=== PATIENT | female | born 1950 | race Caucasian/White ===

== ENCOUNTER 2016-05-20 19:08 | Inpatient (IN) | payer MEDICARE, MEDICAID ==
[~2016-05-20] VITALS: Ht 160 cm; Wt 73.5 kg
[~2016-05-20 19:08] MED LIST: ACLI400A2 IH; BENZ1TAB10 PO; DIVA500T35 PO; HALO50VI4 IM; LITH300T4 PO; METO25TA6 PO; RISP2 PO; TRAZ-144 PO
[2016-05-20] MEDS ORDERED: QUET300T2 PO (19:36)
[2016-05-20] MEDS ORDERED: QUET25TA PO (19:36)
[2016-05-20] MEDS ORDERED: DiphenhydrAMINE HCL 50 MG/ML VIAL IM ONE (20:00)
[2016-05-20] MEDS ORDERED: LORazepam 2 MG/ML VIAL IM ONE (20:00)
[2016-05-20] MEDS ORDERED: HALOPERIDOL LACTATE 5 MG/ML VIAL IM ONE (20:00)
[2016-05-20 20:14] LABS: BASOPHILS % (AUTO) 1.2 % (0.0-2.0); EOSINOPHILS % (AUTO) 1.6 % (1.0-6.0); HEMATOCRIT 40.5 % (36-46); LYMPHOCYTES % (AUTO) 41.8 % (22.0-44.0); MEAN CORPUSCULAR HEMOGLOBIN 31.4 pg (26.0-34.0); MEAN CORPUSCULAR HGB CONC 32.1 G/dL (31.0-37.0); MEAN CORPUSCULAR VOLUME 98 fL (80-100); MONOCYTES # (AUTO) 0.7 K/uL (0.1-1.0); MONOCYTES % (AUTO) 10.3 % (2.0-9.0); NEUTROPHILS # (AUTO) 3.2 K/uL (1.8-7.7); NEUTROPHILS % (AUTO) 45.1 % (40.0-70.0); PLATELET COUNT (AUTO) 255 K/uL (150-450); RED BLOOD CELL COUNT(AUTO) 4.14 MIL/uL (4.00-5.20); RED CELL DISTRIBUTION WIDTH 14.6 % (11.5-14.5); WHITE BLOOD COUNT (AUTO) 7.1 K/uL (4.5-11.0)
[2016-05-20 20:17] LABS: GLUCOSE,POINT OF CARE 126 MG/DL (70-110)
[2016-05-20 20:29] LABS: ANION GAP 8 mmol/L (8-16); CALCIUM, TOTAL 8.8 mg/dL (8.8-10.5); CARBON DIOXIDE 30 mmol/L (22-29); CHLORIDE 103 mmol/L (98-107); CREATININE 0.88 mg/dL (0.60-1.30); GLOMERULAR FILTR. RATE CALC > 60 mL/min (>60); POTASSIUM 4.2 mmol/L (3.5-5.1); SODIUM SERUM 141 mmol/L (136-145); UREA NITROGEN, BLOOD 22 mg/dL (7-18)
[2016-05-20 20:35] LABS: ALANINE AMINOTRANSFERASE 13 U/L (12-78); ALBUMIN 3.1 g/dL (3.4-5.0); ASPARTATE AMINOTRANSFERASE 9 U/L (15-37); BILIRUBIN,TOTAL 0.3 mg/dL (0.1-1.0); TOTAL PROTEIN, SERUM 7.6 g/dL (6.4-8.2); VALPROIC ACID 61 mcg/mL (50-100)
[2016-05-20 20:42] LABS: LITHIUM < 0.20 mmol/L (0.60-1.20)
[2016-05-20] MEDS ORDERED: ZOLPIDEM TARTRATE 10 MG TABLET PO PRN (20:45)
[2016-05-21] MEDS ORDERED: IPRATROPIUM BROMIDE 0.5 MG/2.5 ML NEB SOLUTION NEB ONE ×2 (00:30→02:15)
[2016-05-21] MEDS ORDERED: ALBUTEROL SULFATE 2.5 MG/0.5 ML NEB SOLUTION NEB ONE (00:30)
[2016-05-21] MEDS ORDERED: ALBUTEROL SULFATE 5 MG/ML 20 ML NEB SOLN [BULK] NEB ONE (02:15)
[2016-05-21] MEDS ORDERED: PredniSONE 20 MG TABLET PO ONE (02:15)
[2016-05-21 03:43] LABS: B-TYPE NATRIURETIC PEPTIDE 67 pg/mL (0-100)
[2016-05-21] MEDS: HALOPERIDOL 5 MG TABLET PO PRN ×2 (07:32→16:20)
[2016-05-21] MEDS: LORazepam 2 MG TABLET PO PRN ×2 (07:32→16:20)
[2016-05-21 10:01] VITALS: BP 123/67
[2016-05-21] MEDS ORDERED: NICOTINE 14 MG/24 HOUR PATCH TD SCH (11:15)
[2016-05-21] MEDS ORDERED: PNEUMOCOCCAL VACCINE POLYVALENT 0.5 ML VIAL [PPSV23] IM ONE (11:15)
[2016-05-21] MEDS: QUEtiapine FUMARATE 25 MG TABLET PO SCH (16:20)
[2016-05-21 17:51] VITALS: BP 150/72
[2016-05-21] MEDS ORDERED: DIVALPROEX SODIUM 500 MG ER TABLET PO SCH (21:00)
[2016-05-21] MEDS: QUEtiapine FUMARATE 300 MG TABLET PO SCH (21:53)
[2016-05-21] MEDS: DIVALPROEX SODIUM 500 MG DR TABLET PO SCH (21:55)
[2016-05-21 21:57] LABS: GLUCOSE,POINT OF CARE 123 MG/DL (70-110)
[2016-05-21] MEDS ORDERED: ALBUTEROL SULFATE HFA 90 MCG/PUFF 8 GM INHALER IH PRN (23:15)
[2016-05-21] MEDS ORDERED: ACETAMINOPHEN 325 MG TABLET PO PRN (23:15)
[2016-05-22] MEDS: QUEtiapine FUMARATE 25 MG TABLET PO SCH ×2 (08:19→16:46)
[2016-05-22] MEDS: DIVALPROEX SODIUM 500 MG DR TABLET PO SCH ×2 (08:19→20:23)
[2016-05-22] MEDS: LORazepam 2 MG TABLET PO PRN ×2 (08:21→15:04)
[2016-05-22] MEDS: HALOPERIDOL 5 MG TABLET PO PRN ×2 (08:21→15:04)
[2016-05-22] MEDS: NICOTINE 21 MG/24 HOUR PATCH TD SCH (09:00)
[2016-05-22 11:46] LABS: GLUCOSE,POINT OF CARE 99 MG/DL (70-110)
[2016-05-22 16:57] LABS: GLUCOSE,POINT OF CARE 92 MG/DL (70-110)
[2016-05-22] MEDS: QUEtiapine FUMARATE 300 MG TABLET PO SCH (20:23)
[2016-05-23 05:37] LABS: GLUCOSE,POINT OF CARE 87 MG/DL (70-110)
[2016-05-23] MEDS: QUEtiapine FUMARATE 25 MG TABLET PO SCH ×2 (09:05→17:29)
[2016-05-23] MEDS: NICOTINE 21 MG/24 HOUR PATCH TD SCH (09:05)
[2016-05-23] MEDS: DIVALPROEX SODIUM 500 MG DR TABLET PO SCH ×2 (09:05→19:53)
[2016-05-23] MEDS: HALOPERIDOL 5 MG TABLET PO PRN ×2 (09:07→17:25)
[2016-05-23] MEDS: LORazepam 2 MG TABLET PO PRN (09:07)
[2016-05-23 17:37] LABS: GLUCOSE COMMENT 1 Received Meds; GLUCOSE,POINT OF CARE 98 MG/DL (70-110)
[2016-05-23] MEDS: QUEtiapine FUMARATE 300 MG TABLET PO SCH (19:53)
[2016-05-23 22:12] VITALS: BP 108/75
[2016-05-24 05:32] LABS: GLUCOSE,POINT OF CARE 93 MG/DL (70-110)
[2016-05-24] MEDS: DIVALPROEX SODIUM 500 MG DR TABLET PO SCH ×2 (08:45→20:22)
[2016-05-24] MEDS: QUEtiapine FUMARATE 25 MG TABLET PO SCH ×2 (08:45→16:13)
[2016-05-24] MEDS: NICOTINE 21 MG/24 HOUR PATCH TD SCH (08:50)
[2016-05-24] MEDS ORDERED: HALOPERIDOL LACTATE 5 MG/ML VIAL IM PRN (14:30)
[2016-05-24 16:56] VITALS: BP 117/64
[2016-05-24] MEDS: QUEtiapine FUMARATE 300 MG TABLET PO SCH (20:22)
[2016-05-24] MEDS: HALOPERIDOL LACTATE 5 MG/ML VIAL IM PRN (20:23)
[2016-05-24 23:45] VITALS: BP 110/68
[2016-05-24] MEDS: IBUPROFEN 400 MG TABLET PO PRN (23:46)
[2016-05-25 05:42] LABS: GLUCOSE,POINT OF CARE 158 MG/DL (70-110)
[2016-05-25 07:07] LABS: CHOL/HDL RATIO 9.3 (3.9-5.7); THYROID STIMULATING HORMONE 1.68 uIU/mL (0.36-3.74)
[2016-05-25] MEDS: LORazepam 2 MG TABLET PO PRN ×2 (07:11→13:56)
[2016-05-25 07:35] LABS: HEMOGLOBIN A1C 6.4 % (4.5-6.2)
[2016-05-25 08:55] VITALS: BP 114/59
[2016-05-25] MEDS: QUEtiapine FUMARATE 25 MG TABLET PO SCH ×3 (10:01→19:10)
[2016-05-25] MEDS: DIVALPROEX SODIUM 500 MG DR TABLET PO SCH ×2 (10:01→21:00)
[2016-05-25] MEDS: NICOTINE 21 MG/24 HOUR PATCH TD SCH (10:03)
[2016-05-25] MEDS: QUEtiapine FUMARATE 300 MG TABLET PO SCH (21:00)
[2016-05-25] MEDS: HALOPERIDOL LACTATE 5 MG/ML VIAL IM PRN (21:21)
[2016-05-25 21:27] LABS: GLUCOSE,POINT OF CARE 114 MG/DL (70-110)
[2016-05-25 21:32] VITALS: BP 112/68
[2016-05-25 23:30] VITALS: BP 120/70
[2016-05-25] MEDS: IBUPROFEN 400 MG TABLET PO PRN (23:37)
[2016-05-26 05:37] LABS: GLUCOSE,POINT OF CARE 90 MG/DL (70-110)
[2016-05-26] MEDS: LORazepam 2 MG TABLET PO PRN ×3 (06:52→15:53)
[2016-05-26 08:00] VITALS: BP 100/52
[2016-05-26] MEDS: QUEtiapine FUMARATE 25 MG TABLET PO SCH ×2 (08:34→15:55)
[2016-05-26] MEDS: DIVALPROEX SODIUM 500 MG DR TABLET PO SCH ×2 (08:34→20:43)
[2016-05-26] MEDS: NICOTINE 21 MG/24 HOUR PATCH TD SCH (09:05)
[2016-05-26 09:50] VITALS: BP 110/62
[2016-05-26] MEDS: HALOPERIDOL 5 MG TABLET PO PRN ×2 (11:12→15:54)
[2016-05-26 16:02] LABS: GLUCOSE COMMENT 1 Received Meds; GLUCOSE,POINT OF CARE 144 MG/DL (70-110)
[2016-05-26 16:34] VITALS: BP 118/68
[2016-05-26] MEDS: QUEtiapine FUMARATE 300 MG TABLET PO SCH (20:43)
[2016-05-26] MEDS: SIMVASTATIN 10 MG TABLET PO SCH (20:44)
[2016-05-27 05:37] LABS: GLUCOSE,POINT OF CARE 110 MG/DL (70-110)
[2016-05-27 05:54] VITALS: BP 115/64
[2016-05-27] MEDS: LORazepam 2 MG TABLET PO PRN ×2 (06:02→16:13)
[2016-05-27 08:00] VITALS: BP 103/67
[2016-05-27] MEDS: DIVALPROEX SODIUM 500 MG DR TABLET PO SCH ×2 (08:39→21:35)
[2016-05-27] MEDS: QUEtiapine FUMARATE 25 MG TABLET PO SCH ×2 (08:39→16:13)
[2016-05-27] MEDS: NICOTINE 21 MG/24 HOUR PATCH TD SCH (08:40)
[2016-05-27 16:42] LABS: GLUCOSE,POINT OF CARE 101 MG/DL (70-110)
[2016-05-27 17:12] VITALS: BP 112/68
[2016-05-27] MEDS: SIMVASTATIN 10 MG TABLET PO SCH (21:35)
[2016-05-27] MEDS: QUEtiapine FUMARATE 300 MG TABLET PO SCH (21:35)
[2016-05-28 05:37] LABS: GLUCOSE,POINT OF CARE 78 MG/DL (70-110)
[2016-05-28] MEDS: QUEtiapine FUMARATE 25 MG TABLET PO SCH (08:17)
[2016-05-28] MEDS: LORazepam 2 MG TABLET PO PRN (08:17)
[2016-05-28] MEDS: DIVALPROEX SODIUM 500 MG DR TABLET PO SCH (08:17)
[2016-05-28] MEDS: NICOTINE 21 MG/24 HOUR PATCH TD SCH (08:23)
[2016-05-28] MEDS ORDERED: SIMV10 PO (11:38)
[2016-05-28] MEDS: HALOPERIDOL 5 MG TABLET PO PRN (11:41)
== END 2016-05-28 13:50 | disposition home or self-care (01) | DRG 750 ==
LOC: EMS 19:13 → UNDOADMIN 21:00 → B3A 21:00 → 3EI 05-21 02:00 → EMS 05-21 09:19
DX: F25.0 Schizoaffective disorder, bipolar type (principal); E55.9 Vitamin D deficiency, unspecified; J44.9 Chronic obstructive pulmonary disease, unspecified; E11.9 Type 2 diabetes mellitus without complications; F17.210 Nicotine dependence, cigarettes, uncomplicated; I10 Essential (primary) hypertension; E78.5 Hyperlipidemia, unspecified; E03.9 Hypothyroidism, unspecified; Z71.6 Tobacco abuse counseling; Z59.0 Homelessness; Z91.5 Personal history of self-harm; Z79.899 Other long term (current) drug therapy; Z28.21 Immunization not carried out because of patient refusal
CPT/HCPCS: 82652; 82962; 83036; 84443; 94640; 94644; 96372; 99285; 99406; G0480; J1200; J1630; J2060

== ENCOUNTER 2016-06-01 18:04 | Inpatient (IN) | payer MEDICARE, MEDICAID ==
[~2016-06-01] VITALS: Ht 165.1 cm; Wt 72.4 kg
[~2016-06-01 18:04] MED LIST changes: -ACLI400A2 IH; -BENZ1TAB10 PO; -HALO50VI4 IM; -LITH300T4 PO; -METO25TA6 PO; +QUET25TA PO; +QUET300T2 PO; -RISP2 PO; +SIMV-259 PO; -TRAZ-144 PO
[2016-06-01] MEDS ORDERED: DiphenhydrAMINE HCL 50 MG/ML VIAL IM ONE ×2 (18:15→20:45)
[2016-06-01] MEDS ORDERED: HALOPERIDOL LACTATE 5 MG/ML VIAL IM ONE (18:15)
[2016-06-01] MEDS ORDERED: LORazepam 2 MG/ML VIAL IM ONE ×3 (18:15→20:45)
[2016-06-01 20:36] LABS: BASOPHILS % (AUTO) 0.5 % (0.0-2.0); EOSINOPHILS % (AUTO) 0.4 % (1.0-6.0); HEMOGLOBIN 14.6 g/dL (12.0-16.0); LYMPHOCYTES # (AUTO) 2.8 K/uL (1.0-4.8); LYMPHOCYTES % (AUTO) 26.4 % (22.0-44.0); MEAN CORPUSCULAR HEMOGLOBIN 31.2 pg (26.0-34.0); MEAN CORPUSCULAR HGB CONC 32.4 G/dL (31.0-37.0); MEAN CORPUSCULAR VOLUME 96 fL (80-100); MONOCYTES # (AUTO) 0.7 K/uL (0.1-1.0); MONOCYTES % (AUTO) 6.7 % (2.0-9.0); PLATELET COUNT (AUTO) 222 K/uL (150-450); RED BLOOD CELL COUNT(AUTO) 4.67 MIL/uL (4.00-5.20); RED CELL DISTRIBUTION WIDTH 14.5 % (11.5-14.5); WHITE BLOOD COUNT (AUTO) 10.6 K/uL (4.5-11.0)
[2016-06-01 20:39] LABS: ANION GAP 5 mmol/L (8-16); CARBON DIOXIDE 32 mmol/L (22-29); CHLORIDE 101 mmol/L (98-107); CREATININE 0.73 mg/dL (0.60-1.30); GLOMERULAR FILTR. RATE CALC > 60 mL/min (>60); POTASSIUM 4.7 mmol/L (3.5-5.1); SODIUM SERUM 138 mmol/L (136-145); UREA NITROGEN, BLOOD 13 mg/dL (7-18)
[2016-06-01 20:45] LABS: ALANINE AMINOTRANSFERASE 22 U/L (12-78); ALBUMIN 3.3 g/dL (3.4-5.0); ASPARTATE AMINOTRANSFERASE 31 U/L (15-37); BILIRUBIN,TOTAL 0.4 mg/dL (0.1-1.0); TOTAL PROTEIN, SERUM 7.9 g/dL (6.4-8.2); VALPROIC ACID 50 mcg/mL (50-100)
[2016-06-01 21:10] LABS: APPEARANCE,URINE CLEAR (CLEAR); GLUCOSE, URINE (UA) NEGATIVE (NEGATIVE); KETONES,URINE NEGATIVE (NEGATIVE); LEUKOCYTE ESTERASE ,URINE SMALL (NEGATIVE); OCCULT BLOOD,URINE NEGATIVE (NEGATIVE); PROTEIN,URINE NEGATIVE (NEGATIVE)
[2016-06-01 21:11] LABS: ADD UA MICROSCOPIC YES
[2016-06-01 22:02] LABS: SQUAMOUS EPITHELIAL CELL,UR Few /LPF (None Seen)
[2016-06-01 22:07] LABS: RBC,URINE 0-2 /HPF (0-2)
[2016-06-01] MEDS ORDERED: ZOLPIDEM TARTRATE 10 MG TABLET PO PRN (23:00)
[2016-06-01 23:16] VITALS: BP 145/86
[2016-06-02] MEDS ORDERED: PNEUMOCOCCAL VACCINE POLYVALENT 0.5 ML VIAL [PPSV23] IM ONE (01:45)
[2016-06-02 01:47] VITALS: BP 140/82
[2016-06-02] MEDS: LORazepam 2 MG TABLET PO PRN (07:51)
[2016-06-02] MEDS: DIVALPROEX SODIUM 500 MG DR TABLET PO SCH ×2 (08:00→20:34)
[2016-06-02] MEDS: QUEtiapine FUMARATE 200 MG TABLET PO SCH ×2 (08:00→17:01)
[2016-06-02] MEDS ORDERED: IBUPROFEN 400 MG TABLET PO PRN (09:45)
[2016-06-02] MEDS ORDERED: ALBUTEROL SULFATE HFA 90 MCG/PUFF 8 GM INHALER IH PRN (09:45)
[2016-06-02] MEDS ORDERED: ACETAMINOPHEN 325 MG TABLET PO PRN (09:45)
[2016-06-02] MEDS: NICOTINE 21 MG/24 HOUR PATCH TD SCH (11:18)
[2016-06-02] MEDS: SIMVASTATIN 10 MG TABLET PO SCH (20:34)
[2016-06-02] MEDS: QUEtiapine FUMARATE 300 MG TABLET PO SCH (21:21)
[2016-06-03 06:08] LABS: GLUCOSE,POINT OF CARE 104 MG/DL (70-110)
[2016-06-03] MEDS: LORazepam 2 MG TABLET PO PRN ×2 (08:47→16:46)
[2016-06-03] MEDS: QUEtiapine FUMARATE 25 MG TABLET PO SCH ×2 (08:47→16:46)
[2016-06-03] MEDS: DIVALPROEX SODIUM 500 MG DR TABLET PO SCH ×2 (08:47→20:55)
[2016-06-03] MEDS: NICOTINE 21 MG/24 HOUR PATCH TD SCH (09:00)
[2016-06-03 19:15] VITALS: BP 121/60
[2016-06-03] MEDS: SIMVASTATIN 10 MG TABLET PO SCH (20:55)
[2016-06-03] MEDS: QUEtiapine FUMARATE 300 MG TABLET PO SCH (20:55)
[2016-06-04 06:13] LABS: GLUCOSE,POINT OF CARE 120 MG/DL (70-110)
[2016-06-04 08:00] VITALS: BP 123/70
[2016-06-04] MEDS: NICOTINE 21 MG/24 HOUR PATCH TD SCH (09:00)
[2016-06-04] MEDS: DIVALPROEX SODIUM 500 MG DR TABLET PO SCH ×2 (09:00→21:48)
[2016-06-04] MEDS: QUEtiapine FUMARATE 25 MG TABLET PO SCH ×2 (09:00→17:30)
[2016-06-04] MEDS: LORazepam 2 MG TABLET PO PRN (15:44)
[2016-06-04] MEDS: HALOPERIDOL 5 MG TABLET PO PRN (15:45)
[2016-06-04 16:47] LABS: GLUCOSE,POINT OF CARE 108 MG/DL (70-110)
[2016-06-04] MEDS ORDERED: HALOPERIDOL LACTATE 5 MG/ML VIAL IM PRN (18:30)
[2016-06-04] MEDS: SIMVASTATIN 10 MG TABLET PO SCH (21:48)
[2016-06-04] MEDS: QUEtiapine FUMARATE 300 MG TABLET PO SCH (21:48)
[2016-06-05] MEDS: HALOPERIDOL 5 MG TABLET PO PRN ×2 (00:42→10:54)
[2016-06-05 01:12] VITALS: BP 114/70
[2016-06-05] MEDS: LORazepam 2 MG TABLET PO PRN ×3 (05:04→17:07)
[2016-06-05] MEDS: QUEtiapine FUMARATE 25 MG TABLET PO SCH ×2 (09:04→17:06)
[2016-06-05] MEDS: NICOTINE 21 MG/24 HOUR PATCH TD SCH (09:04)
[2016-06-05] MEDS: DIVALPROEX SODIUM 500 MG DR TABLET PO SCH ×2 (09:04→20:29)
[2016-06-05 19:10] VITALS: BP 118/66
[2016-06-05] MEDS: QUEtiapine FUMARATE 300 MG TABLET PO SCH (20:29)
[2016-06-05] MEDS: SIMVASTATIN 10 MG TABLET PO SCH (20:29)
[2016-06-06 08:00] VITALS: BP 140/80
[2016-06-06] MEDS: LORazepam 2 MG TABLET PO PRN (08:16)
[2016-06-06] MEDS: QUEtiapine FUMARATE 25 MG TABLET PO SCH ×2 (08:17→16:45)
[2016-06-06] MEDS: DIVALPROEX SODIUM 500 MG DR TABLET PO SCH ×3 (08:17→20:44)
[2016-06-06] MEDS: NICOTINE 21 MG/24 HOUR PATCH TD SCH (08:19)
[2016-06-06] MEDS: HALOPERIDOL 5 MG TABLET PO PRN (15:09)
[2016-06-06 17:45] VITALS: BP 157/80
[2016-06-06] MEDS: SIMVASTATIN 10 MG TABLET PO SCH ×2 (20:19→20:45)
[2016-06-06] MEDS: QUEtiapine FUMARATE 300 MG TABLET PO SCH ×2 (20:19→20:45)
[2016-06-07 08:01] VITALS: BP 100/65
[2016-06-07] MEDS: QUEtiapine FUMARATE 25 MG TABLET PO SCH ×2 (08:50→17:46)
[2016-06-07] MEDS: DIVALPROEX SODIUM 500 MG DR TABLET PO SCH (08:50)
[2016-06-07] MEDS: NICOTINE 21 MG/24 HOUR PATCH TD SCH (08:52)
[2016-06-07] MEDS: LORazepam 2 MG TABLET PO PRN ×2 (08:53→18:42)
[2016-06-07] MEDS: DIVALPROEX SODIUM 500 MG ER TABLET PO SCH (20:17)
[2016-06-07] MEDS: SIMVASTATIN 10 MG TABLET PO SCH (20:17)
[2016-06-07] MEDS: QUEtiapine FUMARATE 300 MG TABLET PO SCH (20:17)
[2016-06-07 20:23] VITALS: BP 117/55
[2016-06-08] MEDS: DIVALPROEX SODIUM 500 MG ER TABLET PO SCH ×2 (09:24→20:36)
[2016-06-08] MEDS: QUEtiapine FUMARATE 25 MG TABLET PO SCH ×2 (09:24→16:53)
[2016-06-08] MEDS: NICOTINE 21 MG/24 HOUR PATCH TD SCH (09:24)
[2016-06-08] MEDS: SIMVASTATIN 10 MG TABLET PO SCH (20:36)
[2016-06-08] MEDS: QUEtiapine FUMARATE 300 MG TABLET PO SCH (20:37)
[2016-06-09] MEDS: DIVALPROEX SODIUM 500 MG ER TABLET PO SCH ×2 (09:33→20:58)
[2016-06-09] MEDS: QUEtiapine FUMARATE 25 MG TABLET PO SCH ×2 (09:34→16:06)
[2016-06-09] MEDS: NICOTINE 21 MG/24 HOUR PATCH TD SCH (09:36)
[2016-06-09] MEDS: LORazepam 2 MG TABLET PO PRN (15:10)
[2016-06-09 16:57] LABS: GLUCOSE,POINT OF CARE 95 MG/DL (70-110)
[2016-06-09] MEDS: QUEtiapine FUMARATE 300 MG TABLET PO SCH (20:57)
[2016-06-09] MEDS: SIMVASTATIN 10 MG TABLET PO SCH (20:57)
[2016-06-10] MEDS: NICOTINE 21 MG/24 HOUR PATCH TD SCH (08:53)
[2016-06-10] MEDS: DIVALPROEX SODIUM 500 MG ER TABLET PO SCH ×2 (08:53→20:04)
[2016-06-10] MEDS: QUEtiapine FUMARATE 25 MG TABLET PO SCH ×2 (08:53→16:02)
[2016-06-10] MEDS: LORazepam 2 MG TABLET PO PRN ×2 (12:04→16:02)
[2016-06-10 16:11] LABS: GLUCOSE,POINT OF CARE 89 MG/DL (70-110)
[2016-06-10 16:35] VITALS: BP 106/58
[2016-06-10] MEDS: QUEtiapine FUMARATE 300 MG TABLET PO SCH (20:03)
[2016-06-10] MEDS: SIMVASTATIN 10 MG TABLET PO SCH (20:03)
[2016-06-11 05:27] LABS: GLUCOSE,POINT OF CARE 96 MG/DL (70-110)
[2016-06-11] MEDS: DIVALPROEX SODIUM 500 MG ER TABLET PO SCH ×2 (09:19→21:16)
[2016-06-11] MEDS: QUEtiapine FUMARATE 25 MG TABLET PO SCH ×2 (09:20→16:24)
[2016-06-11] MEDS: NICOTINE 21 MG/24 HOUR PATCH TD SCH (09:20)
[2016-06-11 17:30] VITALS: BP 124/79
[2016-06-11] MEDS: SIMVASTATIN 10 MG TABLET PO SCH (21:16)
[2016-06-11] MEDS: QUEtiapine FUMARATE 300 MG TABLET PO SCH (21:16)
[2016-06-12] MEDS: QUEtiapine FUMARATE 25 MG TABLET PO SCH ×2 (08:40→15:52)
[2016-06-12] MEDS: DIVALPROEX SODIUM 500 MG ER TABLET PO SCH ×2 (08:40→20:03)
[2016-06-12] MEDS: LORazepam 2 MG TABLET PO PRN ×2 (08:42→15:52)
[2016-06-12] MEDS: NICOTINE 21 MG/24 HOUR PATCH TD SCH (08:43)
[2016-06-12 15:57] VITALS: BP 117/71
[2016-06-12 16:30] VITALS: BP 121/74
[2016-06-12] MEDS: QUEtiapine FUMARATE 300 MG TABLET PO SCH (20:03)
[2016-06-12] MEDS: SIMVASTATIN 10 MG TABLET PO SCH (20:04)
[2016-06-13] MEDS: NICOTINE 21 MG/24 HOUR PATCH TD SCH (09:26)
[2016-06-13] MEDS: DIVALPROEX SODIUM 500 MG ER TABLET PO SCH (09:28)
[2016-06-13] MEDS: LORazepam 2 MG TABLET PO PRN (09:29)
[2016-06-13] MEDS: QUEtiapine FUMARATE 25 MG TABLET PO SCH (09:34)
[2016-06-13] MEDS ORDERED: DIVA500T52 PO (10:45)
== END 2016-06-13 12:15 | disposition home or self-care (01) | DRG 750 ==
LOC: EMS 18:07 → UNDOADMIN 23:15 → 3EX 23:15 → 3EI 23:15
DX: F25.0 Schizoaffective disorder, bipolar type (principal); J44.9 Chronic obstructive pulmonary disease, unspecified; E55.9 Vitamin D deficiency, unspecified; E11.9 Type 2 diabetes mellitus without complications; I10 Essential (primary) hypertension; F60.3 Borderline personality disorder; F17.210 Nicotine dependence, cigarettes, uncomplicated; E03.9 Hypothyroidism, unspecified; E78.5 Hyperlipidemia, unspecified; Z79.899 Other long term (current) drug therapy; Z28.21 Immunization not carried out because of patient refusal
CPT/HCPCS: 82962; 87086; 96372; 99285; G0480; J1200; J1630; J2060